=== PATIENT | female | born 1955 | race Hispanic/Latino ===

== ENCOUNTER 2020-07-15 22:06 | Emergency (ER) | payer MEDICARE ==
[~2020-07-15] VITALS: Ht 165.1 cm; Wt 75.7 kg
[2020-07-15] MEDS ORDERED: IBUPROFEN 600 MG TAB PO STA (22:25)
[2020-07-15] MEDS ORDERED: ACETAMINOPHEN 325 MG TAB PO ONE (22:30)
[2020-07-16] MEDS ORDERED: HYDROCODONE/APAP 5MG-325MG TAB PO ONE (00:15)
[2020-07-16 01:36] VITALS: BP 129/76
== END 2020-07-16 01:41 | disposition home or self-care (01) ==
LOC: ER 22:48
DX: S92.351A Displaced fracture of fifth metatarsal bone, right foot, initial encounter for closed fracture (principal); X50.1XXA Overexertion from prolonged static or awkward postures, initial encounter; Y93.01 Activity, walking, marching and hiking; Y92.008 Other place in unspecified non-institutional (private) residence as the place of occurrence of the external cause
CPT/HCPCS: 99283